=== PATIENT | male | born 2000 | race Hispanic/Latino ===

== ENCOUNTER 2021-06-19 09:43 | Emergency (ER) | payer SELFPAY | END 2021-06-19 13:29 | disposition home or self-care (01) | LOC: CSHERS 09:43 | DX: U07.1 COVID-19 (principal); R00.0 Tachycardia, unspecified; Z20.6 Contact with and (suspected) exposure to human immunodeficiency virus [HIV] | CPT/HCPCS: 71045; 93005; 93010 ==

== ENCOUNTER 2021-10-23 01:05 | Emergency (ER) | payer SELFPAY ==
[2021-10-23] MEDS ORDERED: Lorazepam 2 MG/ML VIAL ONE (01:22)
[2021-10-23] MEDS ORDERED: Ondansetron ODT 4 MG TAB ONE (04:26)
== END 2021-10-23 06:21 | disposition home or self-care (01) ==
LOC: CSHERS 01:05
DX: F12.10 Cannabis abuse, uncomplicated (principal)
CPT/HCPCS: 93005; 93010; 96374; J2060; Q0162